=== PATIENT | male | born 1975 | race Two or more races ===

== ENCOUNTER 2021-03-04 12:28 | Emergency (ER) | payer SELFPAY ==
[~2021-03-04] VITALS: Ht 182.9 cm; Wt 103.4 kg
[2021-03-04 13:50] VITALS: BP 130/76
[2021-03-04] MEDS ORDERED: cefTRIAXone SOD 1,000 MG VL IM ONE (14:00)
== END 2021-03-04 15:12 | disposition home or self-care (01) ==
LOC: ER 12:28
DX: U07.1 COVID-19 (principal); J12.82 Pneumonia due to coronavirus disease 2019
CPT/HCPCS: 71045; 96372; 99283; J0696